=== PATIENT | male | born 1945 | race Hispanic/Latino ===

== ENCOUNTER 2018-03-05 05:53 | Day surgery (SDC) | payer MEDICARE ==
[2018-03-02 12:44] VITALS: BP 184/87
[2018-03-02 12:53] LABS: BASOPHILS % (AUTO) 0.9 % (0.0-5.0); EOSINOPHILS % (AUTO) 2.2 % (0.0-8.0); LYMPHOCYTES % (AUTO) 24.5 % (21.0-51.0); MEAN CORPUSCULAR HEMOGLOBIN 29.5 pg (27.0-33.0); MEAN CORPUSCULAR HGB CONC 33.5 g/dL (32.0-36.0); MEAN CORPUSCULAR VOLUME 88.2 fL (79-99); MONOCYTES % (AUTO) 5.9 % (3.0-13.0); NEUTROPHILS % (AUTO) 66.5 % (40.0-77.0); PLATELET COUNT (AUTO) 188 K/uL (130-400); RED BLOOD CELL COUNT(AUTO) 4.54 MIL/uL (4.50-6.20); RED CELL DISTRIBUTION WIDTH 13.7 % (11.0-15.5); WHITE BLOOD COUNT (AUTO) 7.4 K/uL (4.8-10.8)
[2018-03-02 12:56] LABS: APPEARANCE,URINE Clear (CLEAR); BILIRUBIN,URINE Negative (NEGATIVE); COLOR,URINE Yellow (YELLOW); GLUCOSE, URINE (UA) 500 mg/dL (NEGATIVE); KETONES,URINE Negative (NEGATIVE); LEUKOCYTE ESTERASE ,URINE Negative (NEGATIVE); NITRATE,URINE Negative (NEGATIVE); OCCULT BLOOD,URINE Negative (NEGATIVE); PH,URINE 5.5 (5.0-8.0); PROTEIN,URINE POS 2+ (NEGATIVE)
[2018-03-02 13:19] LABS: CREATININE 1.3 mg/dL (0.5-1.5); POTASSIUM 4.4 mmol/L (3.5-5.1)
[2018-03-02 13:20] LABS: BACTERIA,URINE None Seen /HPF (None Seen); RBC,URINE 0-1 /HPF (0-1); SQUAMOUS EPITHELIAL CELL,UR 0-2 /HPF (0-2); WBC,URINE 0-1 /HPF (0-1)
[2018-03-02 13:23] LABS: INR 0.92 (0.85-1.15); PARTIAL THROMBOPLASTIN TIME 30.5 SEC (26.3-35.5); PROTHROMBIN TIME 9.7 SEC (9.6-11.6)
[~2018-03-05] VITALS: Ht 167.6 cm; Wt 86.2 kg
[2018-03-05] VITALS (11 sets, daily range): BP systolic 125–155; BP diastolic 44–63
[~2018-03-05 05:53] MED LIST: AMLO10TA6 PO; ASPI-555 PO; CHOL200013 PO; GEMF600T4 PO; HYDR-4154 PO; INSLAN SQ; INSU100C14 SQ; LEVO50TA11 PO; LISI40TA4 PO; METO-409 PO; MULT-1203 PO; NITR0.4T50 SL; PRAM0.129 PO; RANO500T3 PO; ROSU40TA20 PO; SODIUM CHLORIDE 0.9% 500ML 500 ML IV SCH
[2018-03-05] MEDS ORDERED: SODIUM CHLORIDE 0.9% 1000ML 1,000 ML IV SCH (06:00)
[2018-03-05] MEDS ORDERED: LIDOCAINE HCL 2% 20ML ONE (08:35)
[2018-03-05] MEDS ORDERED: NITROGLYCERIN 5 MG/ML 10 ML VIAL IV ONE (08:35)
[2018-03-05] MEDS ORDERED: IOHEXOL-350 50ML VIAL IV ONE (08:35)
[2018-03-05] MEDS ORDERED: HEPARIN SODIUM 1000UNIT/ML 10ML VIAL ONE (08:35)
[2018-03-05] MEDS ORDERED: IOHEXOL 350 MG/ML 100ML INFUS..BTL IV ONE (08:35)
[2018-03-05] MEDS ORDERED: DEXTROSE 50%-WATER 50 ML DISP.SYRIN IV PRN (09:45)
[2018-03-05] MEDS ORDERED: GLUCAGON 1MG KIT 1 MG ML IM PRN (09:45)
[2018-03-05] MEDS ORDERED: ACETAMINOPHEN 325 MG TAB PO SCH (11:00)
[2018-03-05] MEDS ORDERED: INSULIN R PO SS1 SQ SCH (11:30)
[2018-03-05] MEDS ORDERED: INSULIN LISPRO 100 UNIT/ML 3ML SQ SCH (11:30)
== END 2018-03-05 13:40 | disposition home or self-care (01) ==
LOC: DAH 05:53
PROVIDERS: ATTEND Internal Medicine Cardiovascular Disease
DX: I25.118 Atherosclerotic heart disease of native coronary artery with other forms of angina pectoris (principal); Z79.01 Long term (current) use of anticoagulants; I12.9 Hypertensive chronic kidney disease with stage 1 through stage 4 chronic kidney disease, or unspecified chronic kidney disease; E11.22 Type 2 diabetes mellitus with diabetic chronic kidney disease; N18.3 Chronic kidney disease, stage 3 (moderate); Z79.4 Long term (current) use of insulin; Z79.84 Long term (current) use of oral hypoglycemic drugs; E11.51 Type 2 diabetes mellitus with diabetic peripheral angiopathy without gangrene; G20 Parkinson's disease; E78.5 Hyperlipidemia, unspecified; I48.92 Unspecified atrial flutter; I45.10 Unspecified right bundle-branch block
CPT/HCPCS: 36415; 71045; 80048; 81001; 82948 ×2; 85025; 85610; 85730; 93005; 93458; C1760; C1894; J1644; J3490; J7030; Q9965; Q9967 ×2